=== PATIENT | female | born 1960 | race Caucasian/White ===

== ENCOUNTER 2016-06-03 13:11 | Emergency (ER) | payer OTHER ==
[2016-06-03 13:21] VITALS: TEMP 98.6
[2016-06-03 13:37] LABS: COLOR PALE YELLOW; LEUKOCYTE ESTERASE,URINE NEGATIVE (NEGATIVE); NITRITE,URINE NEGATIVE (NEGATIVE)
[2016-06-03] MEDS ORDERED: ONDANSETRON 4 MG/2 ML VIAL ONE (14:35)
[2016-06-03] MEDS ORDERED: HYDROmorphONE/DILAUDID 1 MG/ML SYR ONE (14:35)
--- NOTE | 2016-06-03 14:46 | EDPHY ---
H & P Time Seen by Provider: 06/03/16 14:31 HPI/ROS: CHIEF COMPLAINT: Pelvic pain HISTORY OF PRESENT ILLNESS: Patient is a 56-year-old female status post TAHOO who presents to the emergency department with bilateral flank pain, bilateral groin pain. Patient's pain has been present for 2-3 days. Patient states her pain is slowly worsening. She has no incontinence of urine or stool. She has been urinating slightly more frequent than normal. No dysuria or hematuria. She has had no fevers or chills. No nausea or vomiting. Her pain is not worse with movement. She has no leg numbness or weakness. REVIEW OF SYSTEMS: My complete review of systems is negative except as mentioned in the HPI. Past Medical/Surgical History: Includes ITP, scoliosis, AST, back pain, neck pain, hypothyroidism Past surgical history: Includes TAHOO, splenectomy ASD closure Smoking Status: Never smoked Physical Exam: Vitals noted GENERAL: Well-appearing, in no acute distress, alert. HEENT: Eyes normal to inspection, normal pharynx, no signs of dehydration. NECK: No thyromegaly, no lymphadenopathy, supple. RESPIRATORY: Clear to auscultation bilaterally, no rales, rhonchi or wheezing. CVS: Regular rate and rhythm, no rubs, murmurs, or gallops. ABDOMEN: Soft, nontender, nondistended, no organomegaly. Benign BACK: Normal to inspection, no CVA tenderness. SKIN: Normal color, no rash, warm, dry. No pallor. EXTREMITIES: No pedal edema, no calf tenderness, no Homans sign or cords, no joint swelling. NEURO/PSYCH: Alert and oriented x3, normal mood and affect, normal motor sensory exam. No obvious cranial nerve deficit. Constitutional: Initial Vital Signs Temperature (C) 37 C 06/03/16 13:19 Heart Rate 83 06/03/16 13:19 Respiratory Rate 18 06/03/16 13:19 Blood Pressure 105/61 06/03/16 13:19 O2 Sat (%) 96 06/03/16 13:19 O2 Delivery Mode Room Air O2 (L/minute) 2 Allergies/Adverse Reactions: amoxicillin trihydrate [From Augmentin] Allergy (Verified 03/09/16 13:17) Hives potassium clavulanate [From Augmentin] Allergy (Verified 03/09/16 13:17) Sulfa (Sulfonamide Antibiotics) Allergy (Verified 03/09/16 13:17) tongue swelling Home Medications: Medication Instructions Recorded FLUoxetine [Prozac 20 MG (*)] 40 mg PO DAILY 06/28/12 Levothyroxine [Synthroid 175 mcg 175 mcg PO DAILY06 06/28/12 (*)] Progesterone,Micronized 200 mg PO HS 06/28/12 [Prometrium] Aspirin [Aspirin 81mg (*)] 81 mg PO DAILY 04/02/14 Estradiol [Vivelle-Dot 0.075MG (*)] 0.150 mg TD MOTH 04/02/14 Multivitamins [Multivitamin (*)] 1 each PO DAILY 04/02/14 Niacin [Niacin 500 mg (*)] 500 mg PO HS 04/02/14 [place]-3 Fatty Acids [Fish Oil 1000 1,000 mg PO BID 04/02/14 mg (*)] SUMAtriptan [Imitrex 50 MG (*)] 50 mg PO DAILY PRN 04/02/14 clonazePAM [Klonopin (*)] 0.5 mg PO HS 04/02/14 Oxycodone HCl/Acetaminophen 1 tab PO BID@05/28/14 [Oxycodone-Acetaminophen 10-325] Sumatriptan Succinate [Imitrex] 6 mg SQ DAILY PRN 05/28/14 Diazepam 5 mg PO TID PRN #11 tab 03/09/16 Fluticort 06/03/16 LEVOTHYROXINE SODIUM 06/03/16 Medical Decision Making ED Course/Re-evaluation: In the emergency department I discussed possible etiologies with the patient. I answered all her questions. Laboratory studies were ordered. Patient had red cells in her urine. I discussed this with the patient. CT without contrast was ordered. Patient requested an MRI for low back pain. I explained diagnostic imaging to the patient. At this time she has no focal neurologic deficit. I doubt cauda equina syndrome. She has an appointment with Dr. Davila tomorrow. I discussed the case with Dr. lawson echo with the patient's primary care physician. She recommended the patient undergo MRI imaging in the emergency department. This was ordered. Patient's CBC was noted for mild anemia. Chemistry unremarkable. CT of the abdomen and pelvis without contrast: No acute disease noted. No kidney stones. Please refer the dictated report by Dr. Simon. 1545: I discussed all results thus far with the patient. I answered her questions. She is aware of the MRI pending. Patient was given Toradol 30 mg IV for ongoing low back pain. 1725: MRI: Pt with degenerative change. Pt with L2-L3 left sided disc herniation. I discussed the result with the patient and answered all her questions. She will f/u with Dr. Davila tomorrow. Pt was given warnings prior to leaving. She will return with worsening symptoms. Differential Diagnosis: My differential includes but is not limited to urinary tract infection, pyelonephritis, kidney stone, disc herniation, low back pain, cauda equina syndrome, malignancy, mass - Data Points Laboratory Results: Laboratory Results 06/03/16 14:50 06/03/16 14:50 06/03/16 06/03/16 14:50 13:24 WBC 8.50 10^3/uL (3.80-9.50) RBC 3.96 L 10^6/uL (4.18-5.33) Hgb 13.1 g/dL (12.6-16.3) Hct 37.4 L % (38.0-47.0) MCV 94.4 fL (81.5-99.8) MCH 33.1 pg (27.9-34.1) MCHC 35.0 g/dL (32.4-36.7) RDW 13.2 % (11.5-15.2) Plt Count 327 10^3/uL (150-400) MPV 9.5 fL (8.7-11.7) Neut % (Auto) 65.3 % (39.3-74.2) Lymph % (Auto) 22.7 % (15.0-45.0) [place] % (Auto) 9.2 % (4.5-13.0) Eos % (Auto) 1.9 % (0.6-7.6) Baso % (Auto) 0.5 % (0.3-1.7) Nucleat RBC Rel Count 0.0 % (0.0-0.2) Absolute Neuts (auto) 5.56 10^3/uL (1.70-6.50) Absolute Lymphs (auto) 1.93 10^3/uL (1.00-3.00) Absolute Monos (auto) 0.78 10^3/uL (0.30-0.80) Absolute Eos (auto) 0.16 10^3/uL (0.03-0.40) Absolute Basos (auto) 0.04 10^3/uL (0.02-0.10) Absolute Nucleated RBC 0.00 10^3/uL (0-0.01) Immature Gran % 0.4 % (0.0-1.1) Immature Gran # 0.03 10^3/uL (0.00-0.10) Sodium 136 mEq/L (134-144) Potassium 4.7 mEq/L (3.5-5.2) Chloride 102 mEq/L (97-110) Carbon Dioxide 23 mEq/l (22-31) Anion Gap 11 mEq/L (8-16) BUN 14 mg/dL (7-23) Creatinine 0.8 mg/dL (0.6-1.0) Estimated GFR > 60 Glucose 102 H mg/dL (70-100) Calcium 9.1 mg/dL (8.5-10.4) Total Bilirubin 0.5 mg/dL (0.1-1.4) Conjugated Bilirubin 0.2 mg/dL (0.0-0.5) Unconjugated Bilirubin 0.3 mg/dL (0.0-1.1) AST 31 IU/L (14-46) ALT 30 IU/L (9-52) Alkaline Phosphatase 39 IU/L (38-126) Total Protein 7.0 g/dL (6.3-8.2) Albumin 3.7 g/dL (3.5-5.0) Lipase 96.0 IU/L (23-300) Urine Color PALE YELLOW Urine Appearance CLEAR Urine pH 7.0 (5.0-7.5) Ur Specific [place] 1.003 (1.002-1.030) Urine Protein NEGATIVE (NEGATIVE) Urine Ketones NEGATIVE (NEGATIVE) Urine Blood 1+ H (NEGATIVE) Urine Nitrate NEGATIVE (NEGATIVE) Urine Bilirubin NEGATIVE (NEGATIVE) Urine Urobilinogen NEGATIVE EU (0.2-1.0) Ur Leukocyte Esterase NEGATIVE (NEGATIVE) Urine RBC 5-10 H /hpf (0-3) Urine WBC 1-3 /hpf (0-3) Ur Epithelial Cells TRACE /lpf (NONE-1+) Ur Culture Indicated? NOT INDICATED (NI) Urine Glucose NEGATIVE (NEGATIVE) Medications Given: Discontinued Medications Hydromorphone HCl (Dilaudid) 1 mg IVP EDNOW ONE Stop: 06/03/16 14:57 Last Admin: 06/03/16 14:55 Dose: 1 mg Hydromorphone HCl (Dilaudid) 0.5 mg IVP EDNOW ONE Stop: 06/03/16 16:06 Last Admin: 06/03/16 16:16 Dose: 0.5 mg Sodium Chloride (Ns) 1,000 mls @ 0 mls/hr IV ONCE ONE PRN Reason: Wide Open Stop: 06/03/16 14:57 Last Admin: 06/03/16 14:55 Dose: 1,000 mls Ketorolac Tromethamine (Toradol) 30 mg IVP EDNOW ONE Stop: 06/03/16 15:36 Last Admin: 06/03/16 15:50 Dose: 30 mg Ondansetron HCl (Zofran) 4 mg IVP EDNOW ONE Stop: 06/03/16 14:57 Last Admin: 06/03/16 14:55 Dose: 4 mg Departure - Departure Disposition: Home, Routine, Self-Care Clinical Impression: Pelvic pain in female Condition: Good Instructions: Pelvic Pain in Women (ED) Additional Instructions: Return with worsening pain, fever, vomiting or any other concerns. Keep your appointment tomorrow with Dr. Davila Referrals: Milo Martinez MD [Primary Care Provider] - 2-3 days, if not improved Juan Villa MD [Medical Doctor] - 06/04/16
[2016-06-03] MEDS ORDERED: HYDROmorphONE/DILAUDID 1 MG/ML SYR IVP ONE ×2 (14:56→16:05)
[2016-06-03] MEDS ORDERED: NS 1,000 ML IV ONE (14:56)
[2016-06-03] MEDS ORDERED: ONDANSETRON 4 MG/2 ML VIAL IVP ONE (14:56)
[2016-06-03 14:58] LABS: % IMMATURE GRANULYOCYTES 0.4 % (0.0-1.1); ABSOLUTE IMMATURE GRANULOCYTES 0.03 10^3/uL (0.00-0.10); ADD DIFF? NO; ADD MORPH? NO; ADD SCAN? NO; ATYPICAL LYMPHOCYTE FLAG 10 (0-99); FRAGMENT RBC FLAG 0 (0-99); HEMATOCRIT 37.4 % (38.0-47.0); HEMOGLOBIN 13.1 g/dL (12.6-16.3); LEFT SHIFT FLG 0 (0-99); LIPEMIA HEMOLYSIS FLAG 90 (0-99); MEAN CELL HEMOGLOBIN 33.1 pg (27.9-34.1); MEAN CELL VOLUME 94.4 fL (81.5-99.8); MEAN PLATELET VOLUME 9.5 fL (8.7-11.7); PLATELET CLUMPS FLAG 10 (0-99); PLATELET COUNT 327 10^3/uL (150-400); RED BLOOD CELL COUNT 3.96 10^6/uL (4.18-5.33); RED CELL DISTRIBUTION WIDTH 13.2 % (11.5-15.2)
[2016-06-03 15:13] LABS: ALANINE AMINOTRANSFERASE 30 IU/L (9-52); ALBUMIN 3.7 g/dL (3.5-5.0); ALKALINE PHOSPHATASE 39 IU/L (38-126); ANION GAP 11 mEq/L (8-16); ASPARTATE AMINOTRANSFERASE 31 IU/L (14-46); BILIRUBIN,TOTAL 0.5 mg/dL (0.1-1.4); BILIRUBIN-CONJUGATED 0.2 mg/dL (0.0-0.5); BILIRUBIN-UNCONJUGATED 0.3 mg/dL (0.0-1.1); CALCIUM 9.1 mg/dL (8.5-10.4); CARBON DIOXIDE 23 mEq/l (22-31); CHLORIDE 102 mEq/L (97-110); CREATININE 0.8 mg/dL (0.6-1.0); GLOMERULAR FILTRATION RATE > 60; GLUCOSE 102 mg/dL (70-100); POTASSIUM 4.7 mEq/L (3.5-5.2); SODIUM 136 mEq/L (134-144)
[2016-06-03] MEDS ORDERED: KETOROLAC 30 MG/1 ML SDV ONE (15:28)
[2016-06-03] MEDS ORDERED: KETOROLAC 30 MG/1 ML SDV IVP ONE (15:35)
--- NOTE | 2016-06-03 15:43 | CT ---
CT Scan of the Urinary Tract (Abdomen and Pelvis Without Contrast) Clinical Indications: Bilateral flank and groin pain. History of splenectomy and appendectomy. Technique: Multidetector helical CT imaging was performed from the kidneys to the urinary bladder wi thout contrast. Findings: Abdomen: No calcifications are found within the kidneys, ureters and bladder. No evidence of hydron ephrosis. Perirenal fat is not edematous. The spleen is surgically absent, with metallic clips in the left upper quadrant. Pelvis: No pelvic masses are seen. There is no free fluid seen. Impression: Negative non-contrast CT examination of the urinary system. Results called to Dr. Kebede at 3:40 PM Attention: This CT examination is specifically designed to evaluate patients who are clinically susp ected of having acute obstructive uropathy. This examination does not use radiographic contrast, and as such, provides only a limited evaluation of the abdomen, pelvis and retroperitoneum. If there i s further clinical suspicion for pathological conditions other than obstructive uropathy, a complete CT evaluation of the abdomen and pelvis utilizing intravenous, oral, and rectal contrast should be co nsidered.
[2016-06-03 16:33] VITALS: PULSE 74; RESP 16
[2016-06-03 16:58] VITALS: BP 105/56; O2SAT 96
--- NOTE | 2016-06-03 17:14 | MR ---
MRI of the Lumbar Spine (Without Contrast) June 03, 2016 at 1610 Hours Clinical Indications: Low back pain. Paresthesias. Technique: Sagittal and axial T1 and T2 and sagittal STIR MRI sequences of the lumbar spine without c ontrast. Axial imaging from T12-S1. Findings: Lumbar vertebral bodies are of normal height without compression fractures. Conus medulla ris appears normal and ends at L1. Moderate thoracolumbar dextroscoliosis and compensatory lower lumb ar levoscoliosis. T12-L1: Moderate degenerative disk disease without disk herniation or stenosis. L1-L2: Moderate degenerative disk disease with left paramedian disk herniation, protrusion and mild b ilateral facet arthropathy, resulting in mild central canal stenosis without neural foraminal stenosi s. L2-L3: Moderate degenerative disk disease, degenerative retrolisthesis, and left paramedian and neura l foraminal disk herniation with extruded disk herniation migrating cephalad and caudally, resulting in moderate central canal stenosis and left lateral recess stenosis with dorsal displacement of the l eft L3 nerve root and moderate to severe left neural foraminal stenosis with moderate bilateral facet arthropathy. L3-L4: Moderate degenerative disk disease, degenerative retrolisthesis, circumferential disk bulge an d osteophytes, and moderate bilateral facet arthropathy, resulting in moderate central canal stenosis and mild to moderate left neural foraminal stenosis. L4-L5: Moderate degenerative disk disease with degenerative retrolisthesis, circumferential disk bulg e, and moderate bilateral facet arthropathy, resulting in mild central canal stenosis and moderate to severe right neural foraminal stenosis without left neural foraminal stenosis. L5-S1: Moderate bilateral facet arthropathy without disk herniation or stenosis. Impressions: 1. Multilevel moderate degenerative disk disease, worse at L2-L3, L3-L4, and L4-L5 with degenerative retrolisthesis at all three levels and bilateral facet arthropathy. 2. L2-L3: Degenerative retrolisthesis, left paramedian disk herniation, extrusion, and bilateral face t arthropathy, resulting in moderate central canal stenosis and moderate to severe left neural forami nal stenosis. 3. L3-L4: Moderate central canal stenosis and mild to moderate left neural foraminal stenosis seconda ry to moderate degenerative disk disease, degenerative retrolisthesis, disk bulge and osteophytes, an d moderate bilateral facet arthropathy. 4. L4-L5: Moderate to severe right neural foraminal stenosis and mild central canal stenosis secondar y to moderate degenerative disk disease with degenerative retrolisthesis, circumferential disk bulge, and moderate bilateral facet arthropathy. 5. Please see above findings at specific disk levels. Findings and recommendations discussed with emergency department physician, Dr. Mariajose Kebede at 16 50 hours today. Final report concurs with initial preliminary interpretation.
== END 2016-06-03 17:44 | disposition home or self-care (01) ==
DX: R10.2 Pelvic and perineal pain (principal); Z79.82 Long term (current) use of aspirin
CPT/HCPCS: 96374; J1170; J1885; J2405

== ENCOUNTER 2018-09-13 21:00 | Inpatient (IN) | payer OTHER ==
[2018-09-13] MEDS ORDERED: NS 1,600 ML IV ONE (21:20)
[2018-09-13] MEDS ORDERED: IBUPROFEN 600 MG TAB PO ONE (21:28)
[2018-09-13] MEDS ORDERED: ACETAMINOPHEN 500 MG TAB PO ONE (21:28)
--- NOTE | 2018-09-13 21:28 | EDPHY ---
H & P Stated Complaint: UTI needs IV abx- no spleen Time Seen by Provider: 09/13/18 21:09 HPI/ROS: Chief complaint: Urinary tract infection History of present illness: This is a 58-year-old female, history of asplenia from ITP, who presents to the emergency department for evaluation of a worsening urinary tract infection. Patient was diagnosed with a urinary tract infection by her primary care doctor yesterday. She was started on ciprofloxacin, she has taken a total of 3 doses. She states despite this she feels worse with increasing generalized malaise and worsening fever. Her urine culture did grow out Strep Agalactiae. She did talk with her primary care doctor group today, their plan was to switch her to Levaquin, however she was worsening and therefore presents here. She does report in addition she has had ongoing abdominal discomfort and bloating for the last few weeks that her doctor is currently evaluating. Review of systems: A 10 point review of systems was obtained and other than described above was negative. - Personal History Current Tetanus/Diphtheria Vaccine: Unsure Current Tetanus Diphtheria and Acellular Pertussis (TDAP): Unsure Tetanus Vaccine Date: 1997 - Medical/Surgical History Hx Asthma: No Hx Chronic Respiratory Disease: No Hx Diabetes: No Hx Cardiac Disease: No Hx Renal Disease: No Hx Cirrhosis: No Hx Alcoholism: No Hx HIV/AIDS: No Hx Splenectomy or Spleen Trauma: Yes Other PMH: hysterectomy, cortisone injection in neck, hypothyroid, back pain - scoliosis, ASD closure 51years old, splenectomy - Social History Smoking Status: Never smoked - Physical Exam Exam: General Appearance: Alert, nontoxic. Eyes: Pupils equal and round no pallor or injection. ENT, Mouth: Mucous membranes moist. Respiratory: There are no retractions, lungs are clear to auscultation. Cardiovascular: Regular rate and rhythm. Gastrointestinal: Abdomen is soft and non tender, no masses, bowel sounds normal. Genitourinary: No CVA tenderness Neurological: Alert. Strength and sensation intact and symmetrical. Skin: Warm and dry, no rashes. Musculoskeletal: Neck is supple non tender. Extremities are symmetrical, full range of motion. Psychiatric: Patient is oriented X 3, there is no agitation. Constitutional: Initial Vital Signs Temperature (C) 39.1 C H 09/13/18 21:00 Heart Rate 120 H 09/13/18 21:00 Respiratory Rate 16 09/13/18 21:00 Blood Pressure 158/82 H 09/13/18 21:00 O2 Sat (%) 96 09/13/18 21:00 O2 Delivery Mode Room Air Allergies/Adverse Reactions: amoxicillin trihydrate [From Augmentin] Allergy (Verified 09/13/18 21:04) Hives potassium clavulanate [From Augmentin] Allergy (Verified 09/13/18 21:04) Sulfa (Sulfonamide Antibiotics) Allergy (Verified 09/13/18 21:04) tongue swelling Home Medications: Medication Instructions Recorded clonazePAM [Klonopin (*)] 0.5 mg PO HS 04/02/14 Sumatriptan Succinate [Imitrex] 6 mg SQ DAILY PRN 05/28/14 LEVOTHYROXINE SODIUM 06/03/16 Abilify 09/13/18 Prozac 10 MG (*) 09/13/18 Medical Decision Making - Diagnostics Imaging Results: Imaging Impressions Chest X-Ray 09/13/18 21:09 Impression: No focal pneumonia. Imaging: I viewed and interpreted images myself ED Course/Re-evaluation: Patient is discussed with my primary supervising physician Dr. Ana Jackson. Patient presents to the emergency department with what appears to be a worsening urinary tract infection. She did trigger sepsis screening but did not trigger actual sepsis. Nevertheless she has been IV hydrated. Blood studies including blood cultures are obtained. She is started on 1 g of Rocephin IV. She will be admitted to Dr. Shayy Nath for further evaluation and care. The plan has been discussed with the patient voiced understanding and agreement with it. Differential Diagnosis: Included but not limited to cystitis, pyelonephritis, sepsis - Data Points Laboratory Results: Laboratory Results 09/13/18 21:18 09/13/18 21:18 09/13/18 09/13/18 09/13/18 21:18 21:18 21:18 WBC 16.24 10^3/uL H 10^3/uL (3.80-9.50) RBC 4.01 10^6/uL L 10^6/uL (4.18-5.33) Hgb 13.0 g/dL g/dL (12.6-16.3) Hct 37.0 % L % (38.0-47.0) MCV 92.3 fL fL (81.5-99.8) MCH 32.4 pg pg (27.9-34.1) MCHC 35.1 g/dL g/dL (32.4-36.7) RDW 12.1 % % (11.5-15.2) Plt Count 363 10^3/uL 10^3/uL (150-400) MPV 9.5 fL fL (8.7-11.7) Neut % (Auto) 85.4 % H % (39.3-74.2) Lymph % (Auto) 6.1 % L % (15.0-45.0) [place] % (Auto) 8.0 % % (4.5-13.0) Eos % (Auto) 0.1 % L % (0.6-7.6) Baso % (Auto) 0.2 % L % (0.3-1.7) Nucleat RBC Rel Count 0.0 % % (0.0-0.2) Absolute Neuts (auto) 13.85 10^3/uL H 10^3/uL (1.70-6.50) Absolute Lymphs (auto) 0.99 10^3/uL L 10^3/uL (1.00-3.00) Absolute Monos (auto) 1.30 10^3/uL H 10^3/uL (0.30-0.80) Absolute Eos (auto) 0.02 10^3/uL L 10^3/uL (0.03-0.40) Absolute Basos (auto) 0.04 10^3/uL 10^3/uL (0.02-0.10) Absolute Nucleated RBC 0.00 10^3/uL 10^3/uL (0-0.01) Immature Gran % 0.2 % % (0.0-1.1) Immature Gran # 0.04 10^3/uL 10^3/uL (0.00-0.10) PT 11.6 SEC L SEC (12.0-15.0) INR 0.88 (0.83-1.16) APTT 26.0 SEC SEC (23.0-38.0) VBG Lactic Acid Sodium 133 mEq/L L mEq/L (135-145) Potassium 3.8 mEq/L mEq/L (3.5-5.2) Chloride 94 mEq/L L mEq/L (97-110) Carbon Dioxide 24 mEq/l mEq/l (22-31) Anion Gap 15 mEq/L H mEq/L (6-14) BUN 14 mg/dL mg/dL (7-23) Creatinine 0.8 mg/dL mg/dL (0.6-1.0) Estimated GFR > 60 Glucose 107 mg/dL H mg/dL (70-100) Calcium 9.3 mg/dL mg/dL (8.5-10.4) Total Bilirubin 0.1 mg/dL mg/dL (0.1-1.4) 09/13/18 21:18 WBC RBC Hgb Hct MCV MCH MCHC RDW Plt Count MPV Neut % (Auto) Lymph % (Auto) [place] % (Auto) Eos % (Auto) Baso % (Auto) Nucleat RBC Rel Count Absolute Neuts (auto) Absolute Lymphs (auto) Absolute Monos (auto) Absolute Eos (auto) Absolute Basos (auto) Absolute Nucleated RBC Immature Gran % Immature Gran # PT INR APTT VBG Lactic Acid 1.5 mmol/L mmol/L (0.7-2.1) Sodium Potassium Chloride Carbon Dioxide Anion Gap BUN Creatinine Estimated GFR Glucose Calcium Total Bilirubin Medications Given: Discontinued Medications Acetaminophen (Tylenol) 1,000 mg PO EDNOW ONE Stop: 09/13/18 21:29 Last Admin: 09/13/18 21:45 Dose: 1,000 mg Ceftriaxone Sodium/Dextrose (Rocephin 1 Gm (Premix)) 50 mls @ 100 mls/hr IV EDNOW ONE PRN Reason: Protocol Stop: 09/13/18 21:49 Last Admin: 09/13/18 21:46 Dose: 50 mls Sodium Chloride (Ns) 1,600 mls @ 3,200 mls/hr 30 ml/kg infuse over 30 min ( 1600 ml) IV EDNOW ONE PRN Reason: Protocol Stop: 09/13/18 21:49 Last Admin: 09/13/18 21:28 Dose: 1,600 mls Sodium Chloride (Ns) 1,000 mls @ 0 mls/hr IV EDNOW ONE; Wide Open PRN Reason: Protocol Stop: 09/13/18 21:46 Last Admin: 09/13/18 21:46 Dose: 1,000 mls Ibuprofen (Motrin) 600 mg PO EDNOW ONE Stop: 09/13/18 21:29 Last Admin: 09/13/18 21:45 Dose: 600 mg Departure - Departure Disposition: [facility] Acute Clinical Impression: UTI (urinary tract infection) Qualifiers: Urinary tract infection type: site unspecified Hematuria presence: without hematuria Qualified Code(s): N39.0 - Urinary tract infection, site not specified Condition: Good
[2018-09-13 21:33] LABS: PLATELET COUNT 363 10^3/uL (150-400)
[2018-09-13] MEDS ORDERED: NS 1,000 ML IV ONE (21:45)
[2018-09-13 21:55] LABS: INR 0.88 (0.83-1.16); PROTIME(PATIENT) 11.6 SEC (12.0-15.0)
[2018-09-13] MEDS ORDERED: POLYETHYLENE GLYCOL 3350 17 GM PKT PO PRN (23:32)
[2018-09-13] MEDS ORDERED: LACTULOSE 20 GM/30 ML UDCUP PO PRN (23:32)
[2018-09-13] MEDS ORDERED: ONDANSETRON 4 MG/2 ML VIAL IVP PRN (23:32)
[2018-09-13] MEDS ORDERED: MAGNESIUM HYDROXIDE 30 ML UDCUP PO PRN (23:32)
[2018-09-13] MEDS ORDERED: ONDANSETRON DISINTEGRATING 4 MG TAB PO PRN (23:32)
[2018-09-13] MEDS ORDERED: BISACODYL 10 MG SUPP PR PRN (23:32)
--- NOTE | 2018-09-13 23:51 | SOAPPROG ---
SOAP Progress Note Assessment/Plan: Assessment: Plan: 09/14/18 00:09 UTI with group B strep: now on ceftriaxone which should adequately treat this. Fever, elevated WBC: not septic, but suspect blood cultures will be positive for strep as well. Temp better, but has also received both tylenol and advil. Will recheck CBC in am. With hx asplenia, I have low threshold for requesting ID consult if she is not improving. Nausea, bloating, indigestion: unclear if related or separate problem. Benign abdominal exam tonight. If persists, will check CT abd/pelvis. Depression: on Prozac, ritalin,and Abilify. Requesting Abilify tonight. Hypothyroid: on replacement Chronic hypotension: on fludcortisone. She hasn't been hypotensive here in ED. Insomnia: requesting clonazepam tonight. CAD: stable disease, asymptomatic DVT Prophylaxis: scds Dispo: Admit to inpatient for IV antibx, ongoing monitoring. Expect at least 2 MN to assure stabilization. 09/14/18 00:38 09/14/18 00:41 Subjective: 58 yo woman with complex medical hx seen in office 09/12/18 c/o diffuse abdominal pain, nausea, bloating, fatigue, headaches for about 3 weeks. Appetite off but eating, though feels indigestion with eating. Eating simply and no weight loss. She's had nausea daily for the last 3 weeks, and has been having a low grade fever. She has been waking with sharp abdominal pain at night. Getting up and moving around tends to relieve it. In the office, she was noted to have a positive UA and was started on cipro 500mg bid. Hasn't had any dysuria, increased frequency or urgency. WBC was normal, though plt count mildly elevated. ESR normal, CRP high at 37.2. Today she developed a fever to 100.6 and felt chilled. I spoke with her and we discussed changing antibx, though her urine cx was not yet back. Her fever increased to 102 at home and she spoke with Dr. Martinez who advised her to come to ED. Urine cx had come back positive for group B strep. Her fever went as high at 39.4 in ED, but has since begun to come down. She has received 1g ceftriaxone. WBC is elevated at 16.24 with L shift. Lactic acid is normal. Blood cx pending. Objective: Vital Signs Temp Pulse Resp BP Pulse Ox 38.3 C H 104 H 20 138/79 H 96 09/13/18 23:26 09/13/18 23:26 09/13/18 23:26 09/13/18 23:26 09/13/18 23:26 PT 11.6 SEC (12.0-15.0) L 09/13/18 21:18 INR 0.88 (0.83-1.16) 09/13/18 21:18 General: well-appearing, alert, oriented, NAD HEENT: PERRL, EOMI, O/P moist. Face flushed Neck: supple, no cervical adenopathy Lungs: clear bilaterally CV: mild tachycardia, no murmur Abdomen: +bowel sounds, soft, non-distended. Mild discomfort with palpation primarily in RUQ. No hepatomegaly. Asplenic. Back: no CVA tenderness Extremities: no edema Skin: no rash, quite warm to touch Neuro: Hanny Psychiatric: normal affect, no agitation ICD10 Worksheet Patient Problems: Problems Problem Status Onset UTI (urinary tract infection) Acute Menopausal bleeding Acute
[2018-09-14] MEDS: ARIPiprazole 2 MG TAB PO SCH ×2 (00:44→11:33)
[2018-09-14] MEDS ORDERED: clonazePAM 0.5 MG TAB PO SCH ×2 (00:45→21:00)
--- NOTE | 2018-09-14 01:29 | GHP ---
[f rep st] HISTORY AND PHYSICAL DATE OF ADMISSION: 09/13/2018 HISTORY OF PRESENT ILLNESS: The patient is a 58-year-old woman with a complex medical history, who was seen in the office on September 12, 2018, complaining of diffuse abdominal pain, nausea, bloating, fatigue, and intermittent migraines for about 3 weeks. Her appetite has been off, but she has been eating, though feels indigestion with eating. She is eating simply and has not had any weight loss. She has had nausea daily for the last 3 weeks, and has been waking with low-grade fevers of 99.5. She has also been waking with sharp abdominal pain at night that feels mostly like gas to her. Getting up and moving around tends to relieve the pain. In the office, she was noted to have a positive urinalysis and was started on Cipro 500 mg b.i.d. She has not had any dysuria, increased frequency or urgency. White blood cell count was normal, though her platelet count was mildly elevated. Sedimentation rate was normal. CRP was elevated at 37.2. Today, she developed a fever to 100.6 and felt chilled. I spoke with her, and we discussed changing antibiotics, though, her urine culture result was not yet back. Her fever subsequently increased to 102 at home and she spoke with Dr. Martinez, who advised her to come to the emergency department. Her urine culture had come back at that point and was positive for group B strep. In the emergency department, her fever was as high as 39.4 C, but has since begun to come down. She has received 1 g of ceftriaxone IV. White blood cell count is elevated at 16.24 with a left shift. Lactic acid is normal. Blood cultures are pending. She is being admitted for further evaluation. PAST MEDICAL HISTORY: Significant for coronary artery disease. On her last coronary calcium, Agatston score was 380 with an annualized rate of progression at 2%. Dyslipidemia, migraine headaches, depression, iron deficiency anemia, insomnia, anxiety, chronic hypotension, hypothyroidism. MEDICATIONS: Vivelle-Dot 0.1 mg twice weekly, fludrocortisone 0.1 mg daily, [id number] mg once monthly, Prozac 30 mg daily, Synthroid 137 mcg daily, Ritalin 5 mg 4 times daily, Clonazepam 0.5 mg at bedtime, Imitrex as needed, Zofran 4 mg every 6 hours as needed. ALLERGIES: Sulfa causes tongue swelling. Augmentin causes hives. NSAIDs cause nausea. PAST SURGICAL HISTORY: ASD closure 2009, splenectomy for ITP, vaginal hysterectomy, appendectomy. FAMILY HISTORY: Her father is alive and well as is her mother, though she had a TIA at the age of 81. Paternal grandmother from CVA. She has 1 brother who is bipolar and another brother who has OCD. SOCIAL HISTORY: She is . She has no children. She is a nonsmoker and drinks alcohol occasionally. REVIEW OF SYSTEMS: GENERAL: Positive for fever and chills and fatigue. Weight has been stable. HEENT: No sore throat, sinus pain, or pressure, congestion. RESPIRATORY: No cough, shortness of breath. CARDIOVASCULAR: No chest pain or pressure. No palpitations or irregular rhythms. GI: Nausea, bloating, and gas as per HPI. No vomiting. The stools have been hard. No rectal bleeding. : No dysuria, hematuria, urgency, or frequency. SKIN: No rash, though her skin feels quite hot. NEUROLOGIC: Intermittent migraine. No numbness, weakness. PSYCHIATRIC: No confusion. PHYSICAL EXAMINATION: VITAL SIGNS: Temperature 38.3, pulse 104, respirations 20, blood pressure 138/79, oxygen saturation 96% on room air. GENERAL: She is well appearing, alert, oriented, no acute distress. HEENT: Pupils equal, round , reactive to light. Extraocular movements are intact. Oropharynx is moist. Face is flushed. NECK: Supple without cervical adenopathy. LUNGS: Clear bilaterally. CARDIOVASCULAR: Mild tachycardia. No murmur. Regular rhythm. ABDOMEN: Normal bowel sounds. Soft, nondistended. Mild discomfort with palpation, primarily in the right upper quadrant. No hepatomegaly, asplenic. BACK: No CVA tenderness. EXTREMITIES: No edema or cyanosis. SKIN: No rash, quite warm to the touch. NEUROLOGIC: Moving all extremities. PSYCHIATRIC: Normal affect. No agitation. ASSESSMENT AND PLAN: 1. Urinary tract infection with group B strep, now on ceftriaxone, which should adequately treat this. 2. Fever, elevated white blood cell count: She is not septic, but suspect her blood cultures will be positive for group B strep as well. Temperature is better, but she has also received both Tylenol and Advil. We will recheck CBC in a.m. Given her asplenia, I have a low threshold for requesting Infectious Disease consult if she is not improving. 3. Nausea, bloating, indigestion: unclear if related or separate problem. Benign abdominal exam tonight. If persists, we will check CT abdomen and pelvis. 4. Depression: on Prozac and Abilify as well as Ritalin. Requesting Abilify tonight. 5. Hypothyroid: on replacement. 6. Chronic hypotension: on fludrocortisone. She has not been hypotensive here in the emergency department. 7. Insomnia: requesting clonazepam tonight. 8. Deep vein thrombosis prophylaxis: will use sequential compression devices. 9. CAD: asymptomatic, stable disease. DISPOSITION: Admit to inpatient for IV antibiotics, ongoing monitoring. Expect at least 2 midnights to assure stabilization. /[id number]/MODL MTDD
[2018-09-14 05:16] LABS: PLATELET COUNT 335 10^3/uL (150-400)
--- NOTE | 2018-09-14 08:36 | PDMN ---
Medical Necessity Medical necessity: MCG; M300 UTI A-2 days: Admission is indicated for 1 or more of the following, -Parenteral antibiotics needed beyond observation care treatment (eg, known or suspected pathogen resistance to oral agents). failed outpt PO abx. Pt found to have Group B strep , fevers, anticipate > 2 MN ongoing med nec care
--- NOTE | 2018-09-14 09:47 | SOAPPROG ---
SOAP Progress Note Assessment/Plan: Assessment: Plan: 09/14/18 00:09 UTI with group B strep: now on ceftriaxone which should adequately treat this. Fever, elevated WBC: not septic, but suspect blood cultures will be positive for strep as well. Temp better, but has also received both tylenol and advil. Will recheck CBC in am. With hx asplenia, I have low threshold for requesting ID consult if she is not improving. Nausea, bloating, indigestion: unclear if related or separate problem. Benign abdominal exam tonight. If persists, will check CT abd/pelvis. Depression: on Prozac, ritalin,and Abilify. Requesting Abilify tonight. Hypothyroid: on replacement Chronic hypotension: on fludcortisone. She hasn't been hypotensive here in ED. Insomnia: requesting clonazepam tonight. CAD: stable disease, asymptomatic DVT Prophylaxis: scds Dispo: Admit to inpatient for IV antibx, ongoing monitoring. Expect at least 2 MN to assure stabilization. 09/14/18 00:38 09/14/18 00:41 09/14/18 09:48 UTI: afebrile, WBC improved and neutrophilia resolved. She is requesting that we check ESR and CRP so will add to blood in lab. Blood cx still pending, and sensitivities pending for Group B strep on urine. Continue ceftriaxone. Nausea, abdominal pain: persistent sx, no change with antibx so will check CT Abd/pelvis and request GI consult for consideration of EGD. Low protein/albumin which is likely at least partly dilutional, but wonder about decreased absorption. LFTs normal. Thyroid nodule: will hold off getting this done just yet as I don't want to introduce possible additional infection from procedure. Anemia: likely dilutional. 09/14/18 09:57 09/14/18 09:58 09/14/18 10:00 Subjective: Feeling better with no fever this morning. Still having GI symptoms including nausea and some abdominal pain this morning. Pain was fairly significant and difficult to localize. Is also scheduled for thyroid nodule bx in radiology on morning and wondering if she could get that done while she's here. Objective: Vital Signs Temp Pulse Resp BP Pulse Ox 36.7 C 74 16 103/58 L 96 09/14/18 07:55 09/14/18 07:55 09/14/18 07:55 09/14/18 07:55 09/14/18 07:55 Laboratory Results 09/14/18 04:41 09/14/18 04:41 09/13/18 09/14/18 09/15/18 05:59 05:59 05:59 Intake Total 2500 Balance 2500 PT 11.6 SEC (12.0-15.0) L 09/13/18 21:18 INR 0.88 (0.83-1.16) 09/13/18 21:18 General: well-appearing, NAD Neck: supple, no adenopathy Lungs: clear bilaterally CV: RRR, no murmur Abdomen: +bowel sounds, soft, mild tenderness, no masses palpated Extremities: no edema ICD10 Worksheet Patient Problems: Problems Problem Status Onset UTI (urinary tract infection) Acute Menopausal bleeding Acute
[2018-09-14] MEDS ORDERED: IOPAMIDOL (ISOVUE-300) 100 ML BTL ONE (11:28)
[2018-09-14] MEDS: SENNOSIDES/DOCUSATE SODIUM TAB PO SCH ×2 (11:34→20:45)
[2018-09-14] MEDS ORDERED: TDAP ADULT 0.5 ML INJ (BOOSTRIX) IM ONE ×2 (12:25→17:00)
[2018-09-14] MEDS ORDERED: SUMAtriptan 6 MG/0.5 ML VIAL SC PRN (14:12)
[2018-09-14] MEDS ORDERED: ONDANSETRON DISINTEGRATING 4 MG TAB PO PRN (14:22)
[2018-09-14] MEDS ORDERED: SUMAtriptan 50 MG TAB PO PRN (14:30)
[2018-09-14] MEDS ORDERED: ESTRADIOL VIVELLE 0.1 MG PATCH TD SCH (14:30)
--- NOTE | 2018-09-14 16:12 | ASMTCMCOM ---
CM Note CM Note Notes: Spoke with pt in the room and with Shayy Nath MD. Pt was admitted for UTI. Pt lives independently with and is independent in the room, steady on her feet. Pt will likely discharge independently. No therapies ordered at this time. CM to follow. D/C Plan: Independent Date Signed: 09/14/2018 04:11 PM Electronically Signed By:Nga Mccoy
[2018-09-14] MEDS: FLUDROCORTISONE ACETATE 0.1 MG TAB PO SCH (16:26)
[2018-09-14] MEDS: FLUoxetine 20 MG CAP PO SCH (16:30)
[2018-09-14] MEDS: FLUoxetine 10 MG CAP PO SCH (16:30)
--- NOTE | 2018-09-14 16:30 | GCON ---
[f rep st] CONSULTATION DATE OF CONSULTATION: 09/14/2018 REFERRING PHYSICIAN: Shayy Nath MD REASON FOR CONSULTATION: Abdominal discomfort. CHIEF COMPLAINT: Abdominal discomfort and nausea. HISTORY OF PRESENT ILLNESS: The patient is a 58-year-old female with a history of coronary artery disease, migraines, iron-deficiency anemia, hypothyroidism, hypotension, who presents to [facility] with complaints of abdominal discomfort, nausea, bloating, as well as low-grade fevers. She was found to have a UTI and has been receiving antibiotics. She states for the last 3 weeks, she has had nausea throughout the day. The heartburn is not worse in the morning. Food may make it worse. She denies any alleviating factors. She was started on low dose PPI with no relief. She also complains of significant bloating and this occurs after eating. She does follow a gluten- free diet. She has had significant fatigue and has been unable to work without getting tired. Every night she has been waking up for the last week with low- grade fevers. She believes that her abdomen feels more distended after eating and this is what is causing her abdominal discomfort. She denies any vomiting. She denies any dysphagia or significant change in her bowel habits. She had 1 day where she had diarrhea. She did have a colonoscopy by my partner, Dr. Morse last year. Her weight has been stable. I am being asked by Dr. Nath to evaluate the patient in consultation regarding her abdominal discomfort. PAST MEDICAL HISTORY: 1. Coronary artery disease. 2. Dyslipidemia. 3. Migraines. 4. Depression. 5. Iron-deficiency anemia. 6. Anxiety. 7. Hypothyroidism. PAST SURGICAL HISTORY: 1. Splenectomy at age 16. 2. Appendectomy. 3. Total hysterectomy. 4. Atrial septal repair at age 51. ALLERGIES: Sulfa. Augmentin. MEDICATIONS: Vivelle Dot, fludrocortisone, Aimovig, Prozac, Synthroid, Ritalin , clonazepam, Imitrex as needed, Zofran. FAMILY HISTORY: No history of colon cancer. One brother is bipolar. Mother TIA. SOCIAL HISTORY: . Social alcohol. No smoking. REVIEW OF SYSTEMS: A 14-point comprehensive review of systems was asked. Pertinent positives and negatives per HPI. PHYSICAL EXAM: VITAL SIGNS: Blood pressure 103/58, pulse 74, respirations 16, temperature 97.7. GENERAL: Awake, alert, oriented x3, in no distress. HEENT: Anicteric sclerae. Moist mucosa. NECK: No JVD. CARDIOVASCULAR: Regular rate and rhythm. Positive S1 and S2. No murmurs, rubs, or gallops appreciated. LUNGS: Clear to auscultation bilaterally. No wheezes, rales, or rhonchi. ABDOMEN: Soft. Minimal discomfort to deep palpation in the midepigastrium. No guarding or rebound. Positive bowel sounds. EXTREMITIES: No clubbing, cyanosis, or edema. NEUROLOGIC: Cranial nerves 2 through 12 are grossly intact. PSYCHIATRIC: Normal affect. SKIN: No rash. MUSCULOSKELETAL : No obvious joint effusions. LABORATORY DATA: Blood work: WBC is 12.82, hemoglobin 11.7, platelets 335. ESR 23. INR 0.88. AST 17, ALT 20. C-reactive protein 48.6. BUN 11, potassium 4.2, chloride 108. ASSESSMENT AND PLAN: 1. Abdominal discomfort- nausea. Unsure if this is a systemic response to urinary tract infection versus other? She does complain of significant abdominal symptoms. At this time, she has a CT scan ordered. Will follow. I would also recommend to perform an upper endoscopy to delineate the cause of her symptoms if CT is unrevealing. The risks, benefits, and alternatives of the procedure were discussed in great detail with the patient. The risks of infection, bleeding, perforation, and sedation were discussed. 2. Coronary artery disease. 3. Hypotension. 4. Dyslipidemia. 5. Anxiety. Thank you very much for this consultation. /[id number]/MODL MTDD
[2018-09-14] MEDS: ACETAMINOPHEN 325 MG TAB PO PRN ×2 (16:55→22:08)
[2018-09-14] MEDS ORDERED: LORazepam 0.5 MG TAB PO PRN (17:00)
[2018-09-14] MEDS ORDERED: ARIPiprazole 2 MG TAB PO SCH ×2 (21:00)
[2018-09-15 05:22] LABS: PLATELET COUNT 368 10^3/uL (150-400)
[2018-09-15] MEDS ORDERED: LEVOTHYROXINE 137 MCG TAB PO SCH (06:00)
[2018-09-15] MEDS ORDERED: LR 1,000 ML IV ONE (06:41)
[2018-09-15] MEDS ORDERED: PROPOFOL 200 MG/20 ML VIAL ONE ×2 (07:19)
--- NOTE | 2018-09-15 07:22 | PDANEPAE ---
ANE History of Present Illness nausea ANE Past Medical History - Cardiovascular History Hx Hypertension: No Hx Arrhythmias: No Hx Coronary Artery / Peripheral Vascular Disease: No Hx CHF / Valvular Disease: No Cardiovascular History Comment: HYPERLIPIDEMIA. HYPOTENSIVE. ASD CLOSURE 2007 - Pulmonary History Hx COPD: No Hx Asthma/Reactive Airway Disease: No Hx Recent Upper Respiratory Infection: No Hx Oxygen in Use at Home: No Hx Sleep Apnea: No Sleep Apnea Screening Result - Last Documented: Positive - Neurologic History Hx Cerebrovascular Accident: No Hx Seizures: No Hx Dementia: No - Endocrine History Hx Diabetes: No Hypothyroid: Yes Hyperthyroid: No Obesity: no Endocrine History Comment: HYPOTHYROID - Renal History Hx Renal Disorders: No - Liver History Hx Hepatic Disorders: No - Neurological & Psychiatric Hx Hx Neurological and Psychiatric Disorders: Yes Neurological / Psychiatric History Comment: ANXIETY, DEPRESSION - Cancer History Hx Cancer: No - Congenital Disorder History Hx Congenital Disorders: No Congenital History Comment: ASD CLOSURE - GI History GERD: no Hx Gastrointestinal Disorders: No - Other Health History Other Health History: NEG - Chronic Pain History Chronic Pain: Yes (BACK - SCOLIOSIS MIGRAINES) - Surgical History Prior Surgeries: SPLENECTOMY - ITP. ASD CLOSURE ANE Review of Systems Review of systems is: negative Review of Systems: - Exercise capacity Exercise capacity: >=4 METS ANE Patient History - Allergies Allergies/Adverse Reactions: amoxicillin trihydrate [From Augmentin] Allergy (Verified 09/13/18 21:04) Hives potassium clavulanate [From Augmentin] Allergy (Verified 09/13/18 21:04) Sulfa (Sulfonamide Antibiotics) Allergy (Verified 09/13/18 21:04) tongue swelling - Home Medications Home medications: home medication list seen and reviewed Home Medications: ARIPiprazole [Abilify 2 mg (*)] 4 mg PO HS 09/14/18 [Last Taken 09/13/18] Estradiol 1 patch TD Q3D 09/14/18 [Last Taken 09/11/18] FLUoxetine [Prozac 10 MG (*)] 10 mg PO DAILY 09/14/18 [Last Taken 09/13/18] FLUoxetine [Prozac 20 MG (*)] 20 mg PO DAILY 09/14/18 [Last Taken 09/13/18] Fludrocortisone Acetate [Florinef] 0.1 mg PO DAILY 09/14/18 [Last Taken 09/13/18 ] LORazepam [Ativan (*)] 0.5 mg PO DAILY@17 PRN 09/14/18 [Last Taken 09/12/18] Levothyroxine [Synthroid 137 mcg (*)] 137 mcg PO DAILY06 09/14/18 [Last Taken ] Methylphenidate HCl [Ritalin 5mg (*)] 5 mg PO BID@09,15 09/14/18 [Last Taken 07/01] SUMAtriptan [Imitrex Sc Injection] 6 mg SQ DAILY PRN 09/14/18 [Last Taken Unknown] Sumatriptan Succinate 100 mg PO DAILY PRN 09/14/18 [Last Taken Unknown] clonazePAM [Clonazepam] 0.5 mg PO HS 09/14/18 [Last Taken 09/13/18] - NPO status NPO Status: no food or drink >8 hours NPO Since - Liquids (Date): 09/15/18 NPO Since - Liquids (Time): 00:00 NPO Since - Solids (Date): 09/15/18 NPO Since - Solids (Time): 00:00 - Anes Hx Anes Hx: no prior problems - Smoking Hx Smoking Status: Never smoked - Family Anes Hx Family Hx Anesthesia Complications: NEG ANE Labs/Vital Signs - Labs Result Diagrams: 09/15/18 05:07 09/15/18 05:07 - Vital Signs Vital Signs: reviewed preoperatively; see RN documention for details Blood Pressure: 113/67 Heart Rate: 83 Respiratory Rate: 12 O2 Sat (%): 94 Height: 170.18 cm Weight: 54.431 kg ANE Physical Exam - Airway Neck exam: FROM Mallampati Score: Class 1 Mouth exam: normal dental/mouth exam - Pulmonary Pulmonary: no respiratory distress - Cardiovascular Cardiovascular: regular rate and rhythym - ASA Status ASA Status: II ANE Anesthesia Plan Anesthesia Plan: GA with mask
--- NOTE | 2018-09-15 07:48 | GIREPORT ---
[facility] Surgical Services - Endoscopy Department Patient Name: Jasmyne Bowden Procedure Date: 09/15/2018 7:00 AM Patient Type: Inpatient Attending MD/ ER Physician: Sergio Irving MD Procedure: Upper GI endoscopy Indications: Epigastric abdominal pain, Dyspepsia, Nausea Patient Profile: 58 year old female presents for evaluation of abdominal discomfort, dyspepsia, and nausea. Providers: Sergio Irving MD Medicines: Monitored Anesthesia Care Complications: No immediate complications. Estimated blood loss: Minimal. Description of Procedure: After obtaining informed consent, the endoscope was passed under direct vision. Throughout the procedure, the patient's blood pressure, pulse, and oxygen saturations were monitored continuously. The Endoscope was intro duced through the mouth, and advanced to the second part of duodenum. The [facility] er GI endoscopy was accomplished without difficulty. The patient tolerated th e procedure well. Findings: The examined esophagus was normal. A small hiatal hernia was present. Patchy mildly erythematous mucosa was found in the gastric body and in the gastric antrum. Biopsies were taken with a cold forceps for histology. The examined duodenum was normal. Biopsies for histology were taken wit h a cold forceps for evaluation of celiac disease. Estimated Blood Loss: Estimated blood loss was minimal. Post Op Diagnosis: - Normal esophagus. - Small hiatal hernia. - Erythematous mucosa in the gastric body and antrum. Biopsied. - Normal examined duodenum. Biopsied. - Etiology? No obvious cause seen. Await biopsy results. Continue curre nt therapy. Recommendation: - [facility]. - Advance diet as tolerated. - Continue present medications. - Thank you for allowing me to participate in the care of your patient. Attending Participation: I personally performed the entire procedure. Sergio Irving MD Sergio Irving MD 09/15/2018 7:47:20 AM This report has been signed electronicallySergio Irving MD Number of Addenda: 0 Note Initiated On: 09/15/2018 7:00 AM [email or web address]
[2018-09-15] MEDS ORDERED: KETOROLAC 30 MG/1 ML SDV ONE (08:07)
[2018-09-15] MEDS ORDERED: KETOROLAC 30 MG/1 ML SDV IVP ONE (08:15)
[2018-09-15] MEDS: FLUoxetine 20 MG CAP PO SCH (09:20)
[2018-09-15] MEDS: FLUoxetine 10 MG CAP PO SCH (09:21)
[2018-09-15] MEDS: FLUDROCORTISONE ACETATE 0.1 MG TAB PO SCH (09:21)
[2018-09-15] MEDS: SENNOSIDES/DOCUSATE SODIUM TAB PO SCH (09:21)
--- NOTE | 2018-09-15 10:44 | SOAPPROG ---
SOAP Progress Note Assessment/Plan: Assessment: 58 yo female admitted for UTI and abd discomfort. CT abd + for constipation. Urine culture + for GBS. Plan: UTI: GBS +. Will give one more dose of ceftriaxone prior to discharge and then start her on ceftin 500mg BID x 7 days. Will test for cure in office prior to finishing abx. Abd discomfort: bowel regimen at home and f/u in office if not improving Dispo: d/c home and f/u in office in one week for UA and CBC recheck 09/15/18 10:42 Subjective: Donna is resting in the chair this morning. She says she is feeling markedly better. Still has some bloating and burping. Objective: Vital Signs Temp Pulse Resp BP Pulse Ox 36.9 C 81 16 110/64 95 09/15/18 10:21 09/15/18 10:21 09/15/18 10:21 09/15/18 10:21 09/15/18 10:21 Laboratory Results 09/15/18 05:07 09/15/18 05:07 09/14/18 09/15/18 09/16/18 05:59 05:59 05:59 Intake Total 2500 350 Output Total 0 Balance 2500 350 PT 11.6 SEC (12.0-15.0) L 09/13/18 21:18 INR 0.88 (0.83-1.16) 09/13/18 21:18 Gen- alert, oriented, vitals stable Head- atraumatic, normocephalic Abd- soft, nontender, bloated Skin- warm and dry Neuro- grossly intact ICD10 Worksheet Patient Problems: Problems Problem Status Onset UTI (urinary tract infection) Acute Menopausal bleeding Acute
--- NOTE | 2018-09-15 11:13 | ASMTDCNOTE ---
Case Management Discharge Discharge Order Complete? Answers: Yes Patient to Obtain Answers: via Family Medications Transportation Arranged Answers: Family/Friends Transport will Pick (Date 09/15/2018 12:00 AM & Time) Family Notified Answers: Yes Notes: in the room Discharge Comments Notes: Pt to discharge independently, comfortable with this plan. No CM need identified at this time. Date Signed: 09/15/2018 11:12 AM Electronically Signed By:Nga Mccoy
--- NOTE | 2018-09-15 11:14 | ASMTLACE ---
BEV Length of stay for Answers: 2 days current admission Acuity / Level of Answers: Yes Care: Did the patient have an inpatient admission? Comorbidities - select Answers: Coronary Artery Disease all that apply Opioid dependence / Chronic pain Other Notes: Hypothyroid # of Emergency department Answers: 1-2 visits in the last 6 months Social determinants Answers: Mental health diagnosis (anxiety, depression, pers onality disorders, etc.) Score: 16 Date Signed: 09/15/2018 11:12 AM Electronically Signed By:Nga Mccoy
--- NOTE | 2018-09-15 11:19 | ASDISCHSUM ---
Discharge Information Plan Status:Home with No Needs Medically Cleared to Leave:09/15/2018 Discharge Date:09/15/2018 CM D/C Disposition:Home, Routine, Self-Care ADT D/C Disposition:Home, Routine, Self-Care Projected Discharge Date:09/15/2018 Transportation at D/C:Family Discharge Delay Reason: Follow-Up Date:09/15/2018 Discharge Slot: Final Diagnosis:UTI Placement Information Patient Contact Information Contact Name:NAKUL Relationship: Address:[address] City:[place] Alternate Phone: [facility]/Zip Code:[place] [address] Email: Financial Information Financial Class:HMO and PPO Plans Primary Plan Desc:[employer] PPO POS HMO SIG ADM Primary Plan Number:[id number] Secondary Plan Desc: Secondary Plan Number: Assessment Information [facility] CM Progress Note CM Note CM Note Notes: Spoke with pt in the room and with Shayy Nath MD. Pt was admitted for UTI. Pt lives independently with and is independent in the room, steady on her feet. Pt will likely discharge independently. No therapies ordered at this time. CM to follow. D/C Plan: Independent Date Signed: 09/14/2018 04:11 PM Electronically Signed By:Nga Mccoy LACE LACE Length of stay for Answers: 2 days current admission Acuity / Level of Answers: Yes Care: Did the patient have an inpatient admission? Comorbidities - select Answers: Coronary Artery Disease all that apply Opioid dependence / Chronic pain Other Notes: Hypothyroid # of Emergency department Answers: 1-2 visits in the last 6 months Social determinants Answers: Mental health diagnosis (anxiety, depression, pers onality disorders, etc.) Score: 16 Date Signed: 09/15/2018 11:12 AM Electronically Signed By:Nga Mccoy Case Management Discharge Plan Note Case Management Discharge Discharge Order Complete? Answers: Yes Patient to Obtain Answers: via Family Medications Transportation Arranged Answers: Family/Friends Transport will Pick (Date 09/15/2018 12:00 AM & Time) Family Notified Answers: Yes Notes: in the room Discharge Comments Notes: Pt to discharge independently, comfortable with this plan. No CM need identified at this time. Date Signed: 09/15/2018 11:12 AM Electronically Signed By:Nga Mccoy Intervention Information
[2018-09-15 11:38] VITALS: BP 113/67
--- NOTE | 2018-09-15 11:39 | POSTANESTH ---
Post Anesthetic Evaluation Cardiovascular Status: Normal, Stable Respiratory Status: Normal, Stable Level of Consciousness/Mental Status: Can Participate in Eval Pain Control: Adequate, Prn Tx Ordered Nausea/Vomiting Control: Adequate, Prn Tx Ordered Complications Possibly Related to Anesthesia: None Noted
--- NOTE | 2018-09-15 12:52 | GDS ---
[f rep st] DISCHARGE SUMMARY PRIMARY DIAGNOSIS: Urinary tract infection. HOSPITAL COURSE: She is a 58-year-old female who presented to the emergency department complaining o f abdominal pain, low-grade fever of 99.5, fatigue, nausea, and decreased appetite. She was seen in the office by her primary care on September 12 and was complaining of the same symptoms, was started on Ci pro 500 mg twice daily for positive urinalysis. On admission to the emergency department, her white count was elevated at 16,000. Lactic acid was 1.5. BUN and creatinine were normal at 14 and 0.8. U rine culture came back from prior urinalysis done in the office and was positive for group B strep. The patient was switched to ceftriaxone and has markedly improved symptomatically. On the day of dis charge, she reports that her fatigue and appetite are improved. She is not complaining of any dysuri a or nausea. She does still have some abdominal distention and bloating, though her CT abdomen durin g this hospitalization was positive for constipation. We will plan to discharge her on oral Ceftin f or 7-day course with a followup in the office prior to completion of antibiotics for test of cure. Jose hudson will also send her home with a bowel regimen for constipation and will follow closely. DISCHARGE MEDICATIONS: Include Ceftin 500 mg p.o. twice daily, MiraLAX 17 g p.o. daily p.r.n. consti pation, Florinef 0.1 mg p.o. daily, Ritalin 5 mg p.o. twice daily, Ativan 0.5 mg p.o. daily, Prozac 3 0 mg p.o. daily, amitriptyline succinate 100 mg p.o. daily p.r.n. migraine, Imitrex 6 mg subcu p.r.n. migraine, clonazepam 0.5 mg p.o. at bedtime, Synthroid 137 mcg p.o. daily at 6 a.m., Abilify 4 mg p. o. at bedtime, and estradiol 1 patch 3 times daily every 3 days. Again, the patient will follow up with her primary care in the office in the next week. /[id number]/MODL
[2018-09-15] MEDS ORDERED: CEFUROXIME AXETIL 250 MG TAB PO SCH (21:00)
== END 2018-09-15 11:58 | disposition home or self-care (01) | DRG 690 ==
LOC: F3E 09-14 00:33
PROVIDERS: ADMIT Internal Medicine; ATTEND Internal Medicine
DX: N39.0 Urinary tract infection, site not specified (principal); B95.1 Streptococcus, group B, as the cause of diseases classified elsewhere; K59.00 Constipation, unspecified; E86.9 Volume depletion, unspecified; E03.9 Hypothyroidism, unspecified; F32.9 Major depressive disorder, single episode, unspecified; G47.00 Insomnia, unspecified; I25.10 Atherosclerotic heart disease of native coronary artery without angina pectoris; D50.9 Iron deficiency anemia, unspecified; E78.5 Hyperlipidemia, unspecified
CPT/HCPCS: 96365; J0696; J1885; J2704; Q9967

== ENCOUNTER → 2018-10-08 | Outpatient (CLI) | payer OTHER | LOC: FIMAGING 07:21 ==